=== PATIENT | male | born 1990 | race Caucasian/White ===

== ENCOUNTER 2019-12-19 20:12 | Emergency (ER) | payer SELFPAY ==
[2019-12-19 20:13] VITALS: BP 163/95; PULSE 114; RESP 18; TEMP 37.1; O2SAT 95; BMI 37.3
== END 2019-12-19 20:58 | disposition left against medical advice (07) ==
LOC: ED 20:51
PROVIDERS: Emergency Provider Emergency Medicine; PCP Family Medicine
DX: Z53.21 Procedure and treatment not carried out due to patient leaving prior to being seen by health care provider (principal)

== ENCOUNTER → 2019-12-23 17:17 | Outpatient (CLI) | payer OTHER, SELFPAY ==
[2019-12-19 20:13] VITALS: BMI 37.3
== END ==
PROVIDERS: PCP Family Medicine; Referring Provider Nurse Practitioner Primary Care; Visit Provider Nurse Practitioner Primary Care
DX: Z03.818 Encounter for observation for suspected exposure to other biological agents ruled out (principal)
CPT/HCPCS: 87635; 94799; U0003

== ENCOUNTER 2019-12-24 22:56 | Emergency (ER) | payer OTHER, SELFPAY ==
[2019-12-24 22:56] VITALS: BP 168/88; PULSE 110; RESP 22; TEMP 35.9; O2SAT 96; BMI 37.1
--- NOTE | 2019-12-24 23:16 | RAD_ITS ---
STUDY: X-RAY CHEST REASON FOR EXAM: Male, 29 years old. sob,cough,fever, loss of taste and amp; smell TECHNIQUE: Single AP portable view of the chest. COMPARISON: None. FINDINGS: The lungs are clear and expanded. There is no demonstrated pleural abnormality. Normal size heart. Normal mediastinum and yvette. Normal visualized pulmonary arteries. Normal visualized aortic arch and descending thoracic aorta. Normal visualized thoracic spine. Normal visualized ribs, clavicles, and shoulders. There is no demonstrated abnormality of the visualized soft tissue structures of the upper abdomen. RAD/Chest 1 View (Portable) IMPRESSION: No evidence of acute cardiopulmonary process. Electronically Signed: Pete Baker DO at 23:46 EDT , Service support ,
--- NOTE | 2019-12-24 23:16 | ED.VIS.GEN ---
History of Present Illness Chief Complaint: Shortness of Breath Informant: Patient Onset: Weeks - 1 week Context: Gradual Onset Timing: Waxes and wanes Current Severity: Mild Maximum Severity: Moderate Narrative: Patient presents secondary to shortness of breath and cough. Patient believes he may have Covid. He developed symptoms last Thursday. T-max is been 100.9. He complains of diarrhea, cough, loss of smell and taste. He states his symptoms are improving but tonight his cough seem to be slightly worse. He was tested for Covid yesterday and test is pending at this time. Past Medical History - Allergies and Home Meds Allergies/Adverse Reactions: Allergies No Known Allergies Allergy (Verified 12/24/19 22:58) Primary Care Physician: Bismark Solorzano MD [Primary Care Provider] - Prior records reviewed: Yes Lives: With Family Smoking Status: Unknown if ever smoked Review of Systems General: Reports: Fever - T-max equals 100.9 Eyes: Denies: Visual changes - bilaterally ENT: Denies: Bilateral ear pain, Sore throat Cardiovascular: Denies: Chest pain Respiratory: Reports: Dyspnea, Cough, Sputum Gastrointestinal: Reports: Diarrhea. Denies: Abdominal pain, Nausea, Vomiting Genitourinary: Denies: Dysuria Musculoskeletal: Denies: Swelling, Extremity Pain Skin: Denies: Rash Neurological: Denies: Headache Hematologic: Denies: Easy bruising, Easy bleeding Allergy: Denies: Uticaria Physical Exam Vital Signs/Narrative: Vital Signs Temp Pulse Resp BP Pulse Ox 12/24/19 22:56 96.7 F L 110 H 22 H 168/88 H 96 Inital Vital Signs reviewed: Yes General: Well nourished, Well developed Head: Normocephalic ENT: Moist mucous membranes Neck: Supple Cardiovascular: Regular rate, Regular rhythm Respiratory: No distress, Diminished - Diminished at the bilateral bases. Abdomen: Soft, Nontender, Normal bowel sounds Extremities: Nontender Skin: Normal color Neurological: Alert, Oriented x3, Normal Strength, Normal Sensation Psychological: Normal affect Diagnostic/Tx/Re-eval Impressions Chest X-Ray 12/24/19 23:16 IMPRESSION: No evidence of acute cardiopulmonary process. Electronically Signed: Pete Baker DO at 23:46 EDT , Service support , 12/24/19 23:16 Chest 1 View (Portable) [RAD] Stat - Medical Decision Making Patient was given albuterol MDI here. On repeat evaluation patient is resting comfortably. Sats remained in the mid 90s. At this time chest x-ray does not show changes that are typically seen with Covid lung. I did advise him that he may very well still have Covid and those test results to be back in the next couple days. Regardless treatment at this time is supportive. He will use his albuterol inhaler, 2 puffs every 4 hours as needed for shortness of breath. He will be given Robitussin and Mucinex. ED Disposition - Plan for ED Patient: Disposition: Home or Assisted Living Diagnosis: Viral syndrome Instructions: ED Viral Syndrome Prescriptions: Guaifenesin [Mucinex] 1,200 mg PO BID PRN PRN #10 tab.er.12h PRN Reason: Cough Transmission Status: Pending to [facility] Guaifenesin [Robitussin] 10 ml PO Q6H PRN PRN #120 mls PRN Reason: Cough Transmission Status: Pending to [facility] Benzonatate [Tessalon Perle] 200 mg PO TID PRN PRN #20 cap PRN Reason: Cough Transmission Status: Pending to [facility] Referrals: Bismark Solorzano MD [Primary Care Provider] - 3-5 Days if not improving
[2019-12-25 00:17] VITALS: PULSE 91; O2SAT 96
[2019-12-25] MEDS: guaiFENesin 10 ML UDC (200MG/10ML) PO (00:23)
== END 2019-12-25 00:26 | disposition home or self-care (01) ==
PROVIDERS: Emergency Provider Emergency Medicine; PCP Family Medicine
DX: B34.9 Viral infection, unspecified (principal); R06.02 Shortness of breath; R05 Cough; R19.7 Diarrhea, unspecified; R43.8 Other disturbances of smell and taste
CPT/HCPCS: 71045; 99283

== ENCOUNTER 2021-02-12 09:12 | Emergency (ER) | payer OTHER, SELFPAY ==
[2021-02-12 09:13] VITALS: BP 160/105; PULSE 80; RESP 16; TEMP 36.1; O2SAT 100; BMI 38.2
[2021-02-12 09:32] VITALS: BP 151/82; O2SAT 99
--- NOTE | 2021-02-12 09:36 | EDS_ITS ---
HPI HPI - GI History of Present Illness Chief Complaint: Abd Pain Informant: patient Narrative Narrative: Patient presents with epigastric pain going on for about 3 days. He states it waxes and wanes. It will sometimes move to the left side and a little bit more frequently kind of moved toward the right upper quadrant. No back pain. He has never had nausea or vomiting. He is still eating and still has an appetite. He does not think that eating really bothers this to any great degree. He states sometimes it hurts after eating but it is not consistent. It will hurt other times. Sometimes it even hurts when he bends or moves. He did have a little bit of soft stool but no change in color. No fevers or chills. No blood in the stool. He admits that he drank a fair amount of alcohol Thursday night. He had a lot more than he normally would. This started Thursday. He did initially have some acid reflux taste. However, a friend gave him Nexium and that seemed to help that portion. He has never had abdominal surgery. Both of his parents have irritable bowel syndrome. He had one family member with pancreatitis but he is not sure of the exact cause. One family member had pancreatic cancer. PFSH PFSH Medical History no medical history Home Medications benzonatate 200 mg PO TID PRN PRN #20 cap 12/25/19 [Rx Last Taken Unknown] guaifenesin 1,200 mg PO BID PRN PRN #10 tab.er.12h 12/25/19 [Rx Last Taken Unknown] guaifenesin 10 ml PO Q6H PRN PRN #120 mls 12/25/19 [Rx Last Taken Unknown] esomeprazole magnesium [Nexium] 20 mg PO DAILY #30 cap 02/12/21 [Rx Last Taken Unknown] Allergy/AdvReac Type Severity Reaction Status Date / Time No Known Allergies Allergy Verified 02/12/21 09:15 Social History Smoking Status: Never smoker ROS ROS ED Constitutional Constitutional ED: Denies chills or fever(s) ENT ENT ED: Denies rhinorrhea Cardiovascular Cardiovascular: Denies chest pain Respiratory/Chest Respiratory/Chest: Denies cough or dyspnea Gastrointestinal Gastrointestinal: Reports abdominal pain and diarrhea; Denies nausea or vomiting Genitourinary Genitourinary ED: Denies dysuria or hematuria Musculoskeletal Musculoskeletal: Denies back pain Integumentary Denies rash Neurologic Neurologic: Denies paresthesias or weakness Endocrine Endocrinology: Denies polyuria Hematologic/Lymphatic Hematologic/Lymphatic: Denies easy bleeding or easy bruising Allergic/Immunologic Allergic/Immunologic ED: Denies urticaria EXAM Physical Exam Const Vital Signs: 02/12/21 09:13 02/12/21 09:32 02/12/21 09:41 Temperature 97 F L 97 F L Temperature Source Temporal Temporal Pulse Rate 80 80 Respiratory Rate 16 16 Blood Pressure 160/105 H 151/82 H 151/82 H Blood Pressure Mean 123 105 105 Pulse Ox 100 99 99 Oxygen Delivery Method Room Air Room Air Room Air Positive well nourished and well developed General Appearance ED: well developed and NAD HEENT normocephalic and atraumatic Eyes General Eye ED: Negative for pale conjunctiva or scleral icterus Resp normal respiratory effort and clear to auscultation bilaterally Auscultation: Negative for rales, rhonchi or wheezes Cardio regular rate, regular rhythm and no murmurs GI non-distended and no masses GI Narrative: There may be very minimal tenderness in the epigastric area just to the right side. But no rebound or guarding. This is very mild. Auscultation: normoactive bowel sounds Palpation: soft Back/Spine no CVA tenderness Neuro Sensorium / Orientation: alert Psych mental status grossly normal Skin no wounds Lesions: no lesions Rashes: no rashes MDM MDM MDM Narrative Medical decision making narrative: Blood work shows no marked abnormalities. Liver function tests, lipase, electrolytes and CBC are essentially unremarkable. Patient states he still gets a little bit of discomfort intermittently in the epigastric area and just to the right side. But his abdomen is completely nontender. He is eating and drinking well. I think he can follow-up as an outpatient. This might be from gastritis in which case we will write for some Nexium. If it is continuing worsening or associated with constant pain, fevers, exacerbated by food, vomiting he may need to return. At this time I do not think we need to do ultrasound. Lab Data Attestation: I reviewed the patient's lab results. Labs: Laboratory Results - last 24 hr 02/12/21 02/12/21 09:37 09:37 WBC 7.6 RBC 5.31 Hgb 15.2 Hct 46.2 MCV 87.0 MCH 28.6 MCHC 32.9 RDW Std Deviation 38.1 RDW Coeff of Michell 11.9 Plt Count 280 MPV 10.7 Immature Gran % (Auto) 0.500 Neut % (Auto) 64.9 Lymph % (Auto) 20.8 Whitley % (Auto) 12.1 H Eos % (Auto) 1.2 Baso % (Auto) 0.5 Absolute Neuts (auto) 4.9 Absolute Lymphs (auto) 1.58 Nucleated RBC % 0 Sodium 138 Potassium 4.1 Chloride 104 Carbon Dioxide 26.0 Anion Gap 8 BUN 11 Creatinine 0.94 Estim Creat Clear Calc 99.96 Est GFR (MDRD) Af Amer 121 Est GFR (MDRD) Non-Af 100 BUN/Creatinine Ratio 11.8 Glucose 106 Calcium 8.8 Total Bilirubin 0.30 AST 16 ALT 38 Alkaline Phosphatase 71 Total Protein 7.8 Albumin 3.4 Globulin 4.4 H Albumin/Globulin Ratio 0.8 L Lipase 75 Discharge Plan Triage Chief Complaint: Abd Pain ED Provider: Houston Lozano Dx/Rx/DC Orders Clinical Impression: Abdominal pain, Acute gastritis Instructions: Abdominal Pain, ED Gastritis (Adult) Prescriptions: New esomeprazole magnesium [Nexium] 20 mg capsule,delayed release(DR/EC) 20 mg PO DAILY Qty: 30 RF: 0 No Action guaifenesin 10 ML liquid 10 ml PO Q6H PRN PRN (Reason: Cough) Qty: 120 RF: 0 guaifenesin 1,200 MG tablet extended release 12hr 1,200 mg PO BID PRN PRN (Reason: Cough) Qty: 10 RF: 0 benzonatate 100 MG capsule 200 mg PO TID PRN PRN (Reason: Cough) Qty: 20 RF: 0 Primary Care Provider: Bismark Solorzano Referrals: Bismark Solorzano MD [Primary Care Provider] - 3-5 Days Disposition Disposition: Home, Self Care
[2021-02-12 09:41] VITALS: BP 151/82; PULSE 80; RESP 16; TEMP 36.1; O2SAT 99
[2021-02-12 09:49] LABS: Absolute Lymphocyte Count 1.58 X10^3/uL (0.83-4.51); Absolute Neutrophil Count 4.9 X10^3/uL (2.0-7.7); Basophil# 0.04 X10^3/uL; Basophil% 0.5 % (0-1); Eosinophil# 0.09 X10^3/uL; Eosinophils% 1.2 % (0-5); Hematocrit 46.2 % (40-54); Hemoglobin 15.2 g/dL (13.0-16.5); Lymphocyte # 1.58 X10^3/ul (0.83-4.51); Lymphocyte % 20.8 % (19-41); Mean Corp Hgb Conc 32.9 g/dL (32-36); Mean Corpuscular Hgb 28.6 pg (27.0-32.0); Mean Platelet Vol. 10.7 fl (6.2-12.0); Monocyte# 0.92 X10^3/uL; Monocyte% 12.1 % (0-10); NRBC Flagged by Analyzer 0 % (0-5); Neutrophil # 4.94 X10^3/uL (2.7-7.7); Neutrophil % 64.9 % (47-70); Platelet Count 280 K/mm3 (150-450); RBC Distribution Width CV 11.9 % (11.6-14.6); RBC Distribution Width SD 38.1 fl (35.1-43.9); Red Blood Count 5.31 M/mm3 (4.6-6.2); White Blood Count 7.6 K/mm3 (4.4-11.0)
[2021-02-12 10:06] LABS: ALB/GLOB Ratio 0.8 RATIO (0.9-2.4); AST(SGOT) 16 U/L (15-37); Alanine Aminotransfer ALT/SGPT 38 U/L (16-61); Albumin, Serum 3.4 g/dL (3.2-5.0); Alkaline Phosphatase 71 U/L (45-117); Anion Gap 8 (5-15); BUN 11 mg/dL (7-18); BUN/Creat Ratio 11.8 RATIO (10-20); Calcium,Total 8.8 mg/dL (8.5-10.1); Chloride 104 mmol/L (98-107); Creatinine, Serum 0.94 mg/dL (0.70-1.30); EST Glomerular Filtration Rate 100 mL/min (>60); Est Glom Filt Rate - Afr Amer 121 mL/min (>60); Estimated Creatinine Clearance 99.96 ml/min; Globulin 4.4 g/dL (2.2-4.2); Glucose 106 mg/dL (74-106); Lipase 75 U/L (73-393); Potassium 4.1 mmol/L (3.5-5.1); Protein, Total 7.8 g/dL (6.4-8.2); Sodium Level 138 mmol/L (136-145)
[2021-02-12] MEDS: 0.9% Normal Saline 1,000 ML 1000 ML IV (10:15)
[2021-02-12 11:18] VITALS: BP 130/68; PULSE 81; RESP 18; O2SAT 98
== END 2021-02-12 11:19 | disposition home or self-care (01) ==
PROVIDERS: Emergency Provider Emergency Medicine; PCP Family Medicine
DX: K29.00 Acute gastritis without bleeding (principal); K21.9 Gastro-esophageal reflux disease without esophagitis; Z80.0 Family history of malignant neoplasm of digestive organs
CPT/HCPCS: 80053; 83690; 85025; 96365; 99283; J7030; A4216; J3490